=== PATIENT | female | born 2000 | race Caucasian/White ===

== ENCOUNTER 2019-05-30 11:55 | Emergency (ER) | payer BC, OTHER, SELFPAY ==
[2019-05-30 12:06] VITALS: BP 142/89; PULSE 88
[2019-05-30] MEDS ORDERED: diphenhydrAMINE 50 MG/ML SDV IM ONE (12:06)
[2019-05-30] MEDS ORDERED: Metoclopramide 10 MG/2 ML SDV IM ONE (12:06)
--- NOTE | 2019-05-30 12:11 | EDM.PDOC ---
ED HPI GENERAL MEDICAL PROBLEM - General Chief Complaint: Headache Stated Complaint: HEADACHE Time Seen by Provider: 05/30/19 12:01 Source of Information: Reports: Patient History Limitations: Reports: No Limitations - History of Present Illness INITIAL COMMENTS - FREE TEXT/NARRATIVE: Patient's unfortunate 19-year-old female presents emergency Department today with complaint of headache cough congestion runny nose. Patient reports cough congestion runny nose started 2 weeks ago and patient has productive yellow sputum, sore throat she is able tolerate by mouth food and fluids well. Patient describes a headache as a dull aching all over headache which is progressively worsened over the last week however, it is similar to previous headaches". Nausea no vomiting no fever no chills no nuchal rigidity no chest pain or shortness of breath no photophobia Headache Pain Score (Numeric/FACES): 6 - Related Data Allergies Allergy/AdvReac Type Severity Reaction Status Date / Time cephalexin [From Keflex] Allergy Hives Verified 05/30/19 12:06 Sulfa (Sulfonamide Allergy Hives Verified 05/30/19 12:06 Antibiotics) Home Meds: Home Meds Azithromycin [Zithromax] 250 mg PO ASDIRECTED #1 packet 05/30/19 [Rx] Past Medical History - Past Health History Medical/Surgical History: Denies Medical/Surgical History Social & Family History - Family History Family Medical History: Unobtainable - Caffeine Use Caffeine Use: Reports: None ED ROS GENERAL - Review of Systems Review Of Systems: See Below Constitutional: Denies: Fever, Chills HEENT: Reports: Rhinitis Respiratory: Reports: Cough, Sputum (yellow). Denies: Shortness of Breath, Wheezing Neurological: Reports: Headache. Denies: Dizziness - Physical Exam Exam: See Below Exam Limited By: No Limitations General Appearance: Alert, WD/WN, Mild Distress Ears: Other (Dull bulging TMs bilaterally) Nose: Normal Inspection, Normal Mucosa, No Blood Throat/Mouth: Other (Mild erythema posterior pharynx with postnasal drainage) Head Exam: Atraumatic, Normocephalic Neck: Normal Inspection, Supple, Non-Tender, Full Range of Motion, Other (No nuchal rigidity). No: Tender Lateral, Tender Midline, Thyromegaly Respiratory/Chest: No Respiratory Distress, Lungs Clear, Normal Breath Sounds, No Accessory Muscle Use, Chest Non-Tender Cardiovascular: Normal Peripheral Pulses, Regular Rate, Rhythm, No Edema, No Gallop, No JVD, No Murmur, No Rub GI/Abdominal: Normal Bowel Sounds, Soft, Non-Tender, No Organomegaly, No Distention, No Abnormal Bruit, No Mass Neuro Exam (Abbreviated): Alert Extremities: Normal Inspection, Normal Range of Motion, Non-Tender, No Pedal Edema, Normal Capillary Refill Skin Exam: Warm, Dry Course - Vital Signs Last Recorded V/S: Last Vital Signs Temp 98.0 F 05/30/19 12:04 Pulse 88 05/30/19 12:04 Resp 20 05/30/19 12:04 BP 142/89 H 05/30/19 12:04 Pulse Ox 100 05/30/19 12:04 - Orders/Labs/Meds Orders: Active Orders 24 hr Category Date Time Status Metoclopramide [Reglan] Med 05/30/19 12:06 Once 10 mg IM ONETIME ONE Triamcinolone Acetonide [Kenalog-40] Med 05/30/19 12:06 Once 40 mg INJECT ONETIME ONE diphenhydrAMINE [Benadryl] Med 05/30/19 12:06 Once 25 mg IM ONETIME ONE Departure - Departure Time of Disposition: 12:09 Disposition: Home, Self-Care 01 Condition: Good Clinical Impression: Sinusitis Cephalgia Qualifiers: Headache type: unspecified Headache chronicity pattern: unspecified pattern Intractability: not intractable Qualified Code(s): R51 - Headache - Discharge Information Prescriptions: Azithromycin [Zithromax] 250 mg PO ASDIRECTED #1 packet Instructions: Sinusitis, Adult, [id number] Referrals: PCP,None [Primary Care Provider] - Additional Instructions: Home, rest, adequate fluids, return as needed for worsening condition Sepsis Event Note - Evaluation Sepsis Screening Result: No Definite Risk - Focused Exam Vital Signs: Vital Signs Temp Pulse Resp BP Pulse Ox 05/30/19 12:04 98.0 F 88 20 142/89 H 100 Date Exam was Performed: 05/30/19 Time Exam was Performed: 12:07 - My Orders Last 24 Hours: My Active Orders 05/30/19 12:06 Metoclopramide [Reglan] 10 mg IM ONETIME ONE Triamcinolone Acetonide [Kenalog-40] 40 mg INJECT ONETIME ONE diphenhydrAMINE [Benadryl] 25 mg IM ONETIME ONE - Assessment/Plan Last 24 Hours: My Active Orders 05/30/19 12:06 Metoclopramide [Reglan] 10 mg IM ONETIME ONE Triamcinolone Acetonide [Kenalog-40] 40 mg INJECT ONETIME ONE diphenhydrAMINE [Benadryl] 25 mg IM ONETIME ONE
[2019-05-30] MEDS ORDERED: Dexamethasone 4 MG/ML SDV IM ONE (12:14)
== END 2019-05-30 12:40 | disposition home or self-care (01) ==
LOC: JD.ED 11:55
DX: J32.9 Chronic sinusitis, unspecified (principal); R51 Headache; Z88.1 Allergy status to other antibiotic agents; Z88.2 Allergy status to sulfonamides
CPT/HCPCS: 96372; 99283; J1100; J1200; J2765

== ENCOUNTER 2022-04-22 15:32 | Emergency (ER) | payer OTHER ==
[2022-04-22 16:37] VITALS: BP 124/80; PULSE 125
[2022-04-22] MEDS ORDERED: Sodium Chloride 0.9% 1,000 ML IV ONE (17:33)
[2022-04-22] MEDS: Sodium Chloride 0.9% 10 ML Syringe FLUSH PRN ×2 (18:15→18:54)
[2022-04-22] MEDS ORDERED: Iopamidol 612 MG/ML 100 ML Bottle IVPUSH ONE (18:25)
[2022-04-22] MEDS ORDERED: Sodium Chloride 0.9% 10 ML Syringe FLUSH ONE (18:25)
[2022-04-22] MEDS ORDERED: Iopamidol 612 MG/ML 50 ML SDV IVPUSH ONE (18:26)
[2022-04-22] MEDS ORDERED: Sodium Chloride 0.9% 100 ML IV SCH (18:30)
[2022-04-22] MEDS ORDERED: Diphtheria,Pertussis(Acell),Tetanus Vaccine 0.5 ML Syringe IM ONE (20:41)
== END 2022-04-22 21:33 | disposition home or self-care (01) ==
LOC: JD.ED 15:32
DX: S01.112A Laceration without foreign body of left eyelid and periocular area, initial encounter (principal); S05.11XA Contusion of eyeball and orbital tissues, right eye, initial encounter; S05.12XA Contusion of eyeball and orbital tissues, left eye, initial encounter; Z88.1 Allergy status to other antibiotic agents; Z88.2 Allergy status to sulfonamides; Y04.0XXA Assault by unarmed brawl or fight, initial encounter
CPT/HCPCS: 12011; 36415; 70450; 70486; 71260; 74177; 80053; 80306; 80307; 81001; 81025; 85025; 96360; 99284; J3490; J7030; Q9967